=== PATIENT | female | born 1960 | race Caucasian/White ===

== ENCOUNTER 2022-01-04 10:13 | Emergency (ER) | payer BC ==
[2022-01-04] MEDS ORDERED: Lidocaine 1% 10 ML MDV INJECT ONE (12:36)
== END 2022-01-04 14:00 | disposition home or self-care (01) ==
LOC: JD.ED 10:13
DX: S61.011A Laceration without foreign body of right thumb without damage to nail, initial encounter (principal); S91.311A Laceration without foreign body, right foot, initial encounter; S80.212A Abrasion, left knee, initial encounter; E78.00 Pure hypercholesterolemia, unspecified; I10 Essential (primary) hypertension; K21.9 Gastro-esophageal reflux disease without esophagitis; Z86.16 Personal history of COVID-19; Z88.2 Allergy status to sulfonamides; Z79.899 Other long term (current) drug therapy; W01.0XXA Fall on same level from slipping, tripping and stumbling without subsequent striking against object, initial encounter
CPT/HCPCS: 12001; 73130-26-RT; 73130-RT; 73562-26-LT; 73562-LT; 99283-25